=== PATIENT | female | born 1985 | race Caucasian/White ===

== ENCOUNTER 2016-10-24 11:03 | Inpatient (IN) | payer MEDICARE, MEDICAID ==
[2016-10-24] MEDS ORDERED: Sodium Chloride 0.9% 2,000 ML IV ONE (11:51)
[2016-10-24] MEDS ORDERED: HYDROmorphone 1 MG/ML Syringe IVPUSH ONE ×4 (11:51→16:29)
[2016-10-24] MEDS ORDERED: Ondansetron 4 MG/2 ML SDV IVPUSH ONE (11:52)
--- NOTE | 2016-10-24 11:57 | EDM.PDOC ---
ED HPI GENERAL MEDICAL PROBLEM - General Chief Complaint: Gastrointestinal Problem Stated Complaint: CHRON'S FLARE UP Time Seen by Provider: 10/24/16 11:30 Source of Information: Reports: Patient History Limitations: Reports: No Limitations - History of Present Illness INITIAL COMMENTS - FREE TEXT/NARRATIVE: Patient is a 31-year-old female who presents to the ED complaining of generalized abdominal pain with distention and mild nausea. Patient has a history of Crohn's disease and is currently on entyvio. Has ileostomy bag in place. Receives TPN through PICC line to her right upper arm. Just recently returned to [place] from [facility]. She is visiting her and daughter. She'll be here for the next few days. States she has not taken her Dilaudid 4 mg by mouth every 6 hours this morning and thus is questioning increasing abdominal discomfort secondary to that. In addition she feels somewhat dry and may need some IV fluids. There is also concern for possible air embolism. states patient was found to be excessively tired with low energy and would fall asleep randomly. Last night with hooking up her TPN she did not flush the system appropriately and this was stopped and prepped by her appropriately with administration of the TPN thereafter. After completion of the TPN infusion they were putting the machine away and the patient attempted to try to hook it up again. She does take Dilaudid 4 mg every 6 hours. She's been on this medication for quite some time. Patient has not developed any chest pain, headache, vision changes, shortness of breath, fever/ chills, dysuria, rash, or any additional complaints. In addition she has a history of anxiety and depression and takes alprazolam 0.5 mg 3 times a day. Patient sees a specialist at [facility] for her Crohn's treatment. Right Abdominal Pain Score (Numeric/FACES): 8 - Related Data Allergies Allergy/AdvReac Type Severity Reaction Status Date / Time No Known Allergies Allergy Verified 10/24/16 18:01 Home Meds: Home Meds Budesonide [Entocort EC] 6 mg PO BEDTIME 01/07/16 [History] Promethazine [Phenergan] 12.5 mg PO Q6H PRN #20 tablet 01/08/16 [Rx] Acetaminophen/HYDROcodone [[place] 325-5 MG] 1 - 2 tab PO Q4H PRN #20 tablet 01/10 [Rx] methylPREDNISolone [Medrol] 40 mg PO DAILY 01/15/16 [History] Past Medical History Cardiovascular History: Reports: Heart Failure, Other (See Below) Other Cardiovascular History: Heart failure when she was in [place] for the past year Gastrointestinal History: Reports: Other (See Below) Other Gastrointestinal History: sigmoid dilation 4 times; Chrons dx; fistulas CLIENT SUPPORT ASSOCIATE History: Reports: Other OB/BYN History: Psychiatric History: Reports: Anxiety, Depression - Past Surgical History GI Surgical History: Reports: Other (See Below) Other GI Surgeries/Procedures: ileostomy Female Surgical History: Reports: Section Social & Family History - Family History Family Medical History: Noncontributory - Tobacco Use Smoking Status *Q: Never Smoker Second Hand Smoke Exposure: No - Caffeine Use Caffeine Use: Reports: Coffee Other Caffeine Use: coffee rarely - Alcohol Use Days Per Week of Alcohol Use: 0 - Recreational Drug Use Recreational Drug Use: No - Living Situation & Occupation Living situation: Reports: ED ROS GENERAL - Review of Systems Review Of Systems: See Below Constitutional: Reports: Decreased Appetite (Normal unchanged). Denies: Fever, Chills, Weight Loss HEENT: Reports: No Symptoms Respiratory: Reports: No Symptoms Cardiovascular: Reports: No Symptoms GI/Abdominal: Reports: Abdominal Pain (Generalized crampy/sharp discomfort throughout), Decreased Appetite, Distension, Flatus, Nausea. Denies: Black Stool, Bloody Stool, Constipation, Diarrhea, Hematemesis, Hematochezia, Melena, Vomiting : Denies: Dysuria Musculoskeletal: Denies: Back Pain Neurological: Reports: Dizziness (Intermittent). Denies: Headache ED EXAM, GI/ABD - Physical Exam Exam: See Below Exam Limited By: No Limitations General Appearance: Alert, WD/WN, No Apparent Distress Ears: Hearing Grossly Normal Nose: Normal Inspection Throat/Mouth: Normal Inspection, Normal Voice, No Airway Compromise, Other ( Mildly dry oral mucosa) Neck: Normal Inspection, Supple Respiratory/Chest: No Respiratory Distress, Lungs Clear, Normal Breath Sounds, No Accessory Muscle Use, Chest Non-Tender Cardiovascular: Normal Peripheral Pulses, Regular Rate, Rhythm, No Murmur GI/Abdominal Exam: Soft, No Organomegaly, No Distention, Tender (Throughout her abdomen with palpation, mild in nature. Ileostomy in place with light colored secretions. No blood present. Stoma site reveals no irritation, increased redness, increased swelling, or pain with palpation. Patient has multiple fistulas that appeared to to be not infected.), Abnormal Bowel Sounds ( Hyperactive) (Female) Exam: Deferred Rectal (Female) Exam: Deferred Back Exam: Normal Inspection Extremities: Normal Inspection, Non-Tender, No Pedal Edema, Other (PICC line to the medial aspect of the right upper arm with Tegaderm in place. No signs of erythema, increased swelling, or pain present.) Neurological: Alert, Oriented, CN II-XII Intact, Normal Cognition, Normal Gait, No Motor/Sensory Deficits Psychiatric: Normal Affect, Normal Mood Skin Exam: Warm, Dry, Intact, Normal Color Course - Vital Signs Last Recorded V/S: Last Vital Signs Temp 98.7 F 10/24/16 11:11 Pulse 114 H 10/24/16 11:11 Resp 16 10/24/16 11:11 BP 109/77 10/24/16 11:11 Pulse Ox 94 L 10/24/16 11:11 - Orders/Labs/Meds Orders: Active Orders 24 hr Category Date Time Status Peripheral IV Care [RC] . DIRECTED Care 10/24/16 11:51 Active Sodium Chloride 0.9% [Saline Flush] Med 10/24/16 11:51 Active 10 ml FLUSH ASDIRECTED PRN NG [Nasogastric Orogastric Tube Insertion] [OM.PC] Oth 10/24/16 17:03 Ordered Routine Peripheral IV Insertion Adult [OM.PC] Stat Ot 10/24/16 11:51 Ordered Medication Orders Acetaminophen (Tylenol) 650 mg PO Q4H PRN PRN Reason: Pain (Mild 1-3)/fever Hydrocodone Bitart/Acetaminophen ([place] 325-5 Mg) 1 tab PO Q4H PRN PRN Reason: Pain (moderate 4-6) Albuterol/Ipratropium (Duoneb 3.0-0.5 Mg/3 Ml) 3 ml NEB Q4H PRN PRN Reason: Shortness Of Breath/wheezing Cyanocobalamin (Vitamin B12) 1,000 mcg IM DAILY LALITHA Stop: 10/28/16 09:00 Folic Acid (Folic Acid) 2 mg SUBCUT DAILY ONE Stop: 10/25/16 18:05 Folic Acid (Folic Acid) 1 mg PO DAILY [facility] Hydralazine HCl (Apresoline) 20 mg IVPUSH Q4H PRN PRN Reason: Hypertension Hydrocortisone Sodium Succinate (Solu-Cortef) 100 mg IVPUSH Q6H LALITHA Hydromorphone HCl (Dilaudid) 1 mg IVPUSH Q4H PRN PRN Reason: Pain (severe 7-10) Dextrose/Sodium Chloride (Dextrose 5%-1/2 Ns) 1,000 mls @ 125 mls/hr IV ASDIRECTED [facility] Promethazine HCl 12.5 mg/ (Sodium Chloride) 50.5 mls @ 100 mls/hr IV Q6H PRN PRN Reason: Nausea/Vomiting Lorazepam (Ativan) 2 mg IVPUSH Q4H PRN PRN Reason: Seizures Lorazepam (Ativan) 1 mg IV Q6H PRN PRN Reason: Anxiety Magnesium Sulfate (Pharmacy To Dose - Magnesium Replacement) 1 dose .XX ASDIRECTED [facility] Metoclopramide HCl (Reglan) 5 mg IVPUSH Q6H [facility] Metoprolol Tartrate (Lopressor) 5 mg IVPUSH Q4H PRN PRN Reason: Tachycardia Metronidazole (Flagyl) 500 mg PO Q8H [facility] Multivitamins (Thera) 1 each PO DAILY [facility] Non-Formulary Medication (Budesonide [Entocort Ec]) 6 mg PO BEDTIME LALITHA Ondansetron HCl (Zofran) 4 mg IV Q6H PRN PRN Reason: Nausea/Vomiting Pantoprazole Sodium (Protonix Iv) 40 mg IV Q12HR [facility] Potassium Chloride (Pharmacy To Dose - Potassium Replacement) 1 dose .XX ASDIRECTED [facility] Sodium Chloride (Saline Flush) 10 ml FLUSH ASDIRECTED PRN PRN Reason: Keep Vein Open Last Admin: 10/24/16 13:49 Dose: 10 ml Admin: 10/24/16 12:11 Dose: 10 ml Temazepam (Restoril) 15 mg PO BEDTIME PRN PRN Reason: Sleep Labs: Laboratory Tests 10/24/16 10/24/16 10/24/16 Range/Units 12:09 12:09 12:09 WBC 7.80 (3.98-10.04) K/mm3 RBC 4.70 (3.98-5.22) M/mm3 Hgb 9.6 L (11.2-15.7) gm/L Hct 31.4 L (34.1-44.9) % MCV 66.8 L (79.4-94.8) fl MCH 20.4 L (25.6-32.2) pg MCHC 30.6 L (32.2-35.5) g/dl RDW Std Deviation 45.7 (36.4-46.3) fL Plt Count 389 H (182-369) K/mm3 MPV 10.0 (9.4-12.3) fl Neut % (Auto) 66.0 (34.0-71.1) % Lymph % (Auto) 21.5 (19.3-51.7) % Bond % (Auto) 10.6 (4.7-12.5) % Eos % (Auto) 1.7 (0.7-5.8) Baso % (Auto) 0.1 (0.1-1.2) % Neut # (Auto) 5.14 (1.56-6.13) K/mm3 Lymph # (Auto) 1.68 (1.18-3.74) K/mm3 Bond # (Auto) 0.83 H (0.24-0.36) K/mm3 Eos # (Auto) 0.13 (0.04-0.36) K/mm3 Baso # (Auto) 0.01 (0.01-0.08) K/mm3 Manual Slide Review Abnormal smear Sodium 132 L (136-145) mEq/L Potassium 4.4 (3.5-5.1) mEq/L Chloride 96 L (98-107) mEq/L Carbon Dioxide 31 (21-32) mEq/L Anion Gap 9.4 (5-15) BUN 25 H (7-18) mg/dL Creatinine 0.7 (0.55-1.02) mg/dL Est Cr Clr Drug Dosing 99.14 mL/min Estimated GFR (MDRD) > 60 (>60) mL/min BUN/Creatinine Ratio 35.7 H (14-18) Glucose 114 H (74-106) mg/dL Calcium 9.6 (8.5-10.1) mg/dL Total Bilirubin 0.3 (0.2-1.0) mg/dL AST 54 H (15-37) U/L ALT 60 H (14-59) U/L Alkaline Phosphatase 187 H (46-116) U/L C-Reactive Protein 7.1 H* (<1.0) mg/dL Total Protein 8.3 H (6.4-8.2) g/dl Albumin 3.1 L (3.4-5.0) g/dl Globulin 5.2 gm/dL Albumin/Globulin Ratio 0.6 L (1-2) Lipase 134 (73-393) U/L HCG, Qual Negative (NEGATIVE) Urine Color (Yellow) Urine Appearance (Clear) Urine pH (5.0-8.0) Ur Specific [place] (1.005-1.030) Urine Protein (Negative) Urine Glucose (UA) (Negative) Urine Ketones (Negative) Urine Occult Blood (Negative) Urine Nitrite (Negative) Urine Bilirubin (Negative) Urine Urobilinogen (0.2-1.0) Ur Leukocyte Esterase (Negative) Urine RBC (0-5) /hpf Urine WBC (0-5) /hpf Ur Epithelial Cells (0-5) /hpf Urine Bacteria (FEW) /hpf Urine Mucus (FEW) /hpf 10/24/16 Range/Units 15:45 WBC (3.98-10.04) K/mm3 RBC (3.98-5.22) M/mm3 Hgb (11.2-15.7) gm/L Hct (34.1-44.9) % MCV (79.4-94.8) fl MCH (25.6-32.2) pg MCHC (32.2-35.5) g/dl RDW Std Deviation (36.4-46.3) fL Plt Count (182-369) K/mm3 MPV (9.4-12.3) fl Neut % (Auto) (34.0-71.1) % Lymph % (Auto) (19.3-51.7) % Bond % (Auto) (4.7-12.5) % Eos % (Auto) (0.7-5.8) Baso % (Auto) (0.1-1.2) % Neut # (Auto) (1.56-6.13) K/mm3 Lymph # (Auto) (1.18-3.74) K/mm3 Bond # (Auto) (0.24-0.36) K/mm3 Eos # (Auto) (0.04-0.36) K/mm3 Baso # (Auto) (0.01-0.08) K/mm3 Manual Slide Review Sodium (136-145) mEq/L Potassium (3.5-5.1) mEq/L Chloride (98-107) mEq/L Carbon Dioxide (21-32) mEq/L Anion Gap (5-15) BUN (7-18) mg/dL Creatinine (0.55-1.02) mg/dL Est Cr Clr Drug Dosing mL/min Estimated GFR (MDRD) (>60) mL/min BUN/Creatinine Ratio (14-18) Glucose (74-106) mg/dL Calcium (8.5-10.1) mg/dL Total Bilirubin (0.2-1.0) mg/dL AST (15-37) U/L ALT (14-59) U/L Alkaline Phosphatase (46-116) U/L C-Reactive Protein (<1.0) mg/dL Total Protein (6.4-8.2) g/dl Albumin (3.4-5.0) g/dl Globulin gm/dL Albumin/Globulin Ratio (1-2) Lipase (73-393) U/L HCG, Qual (NEGATIVE) Urine Color Yellow (Yellow) Urine Appearance Clear (Clear) Urine pH 6.5 (5.0-8.0) Ur Specific [place] 1.010 (1.005-1.030) Urine Protein Negative (Negative) Urine Glucose (UA) Negative (Negative) Urine Ketones Negative (Negative) Urine Occult Blood Negative (Negative) Urine Nitrite Negative (Negative) Urine Bilirubin Negative (Negative) Urine Urobilinogen 0.2 (0.2-1.0) Ur Leukocyte Esterase Negative (Negative) Urine RBC 0-5 (0-5) /hpf Urine WBC 0-5 (0-5) /hpf Ur Epithelial Cells 0-5 (0-5) /hpf Urine Bacteria Few (FEW) /hpf Urine Mucus Not seen (FEW) /hpf Meds: Medications Generic Name Dose Route Start Last Admin Trade Name Freq PRN Reason Stop Dose Admin Acetaminophen 650 mg 10/24/16 17:52 Tylenol PO Q4H PRN Pain (Mild 1-3)/fever Hydrocodone Bitart/Acetaminophen 1 tab 10/24/16 17:52 [place] 325-5 Mg PO Q4H PRN Pain (moderate 4-6) Albuterol/Ipratropium 3 ml 10/24/16 17:52 Duoneb 3.0-0.5 Mg/3 Ml NEB Q4H PRN Shortness Of Breath/wheezing Cyanocobalamin 1,000 mcg 10/25/16 09:00 Vitamin B12 IM 10/28/16 09:00 DAILY LALITHA Folic Acid 2 mg 10/25/16 18:04 Folic Acid SUBCUT 10/25/16 18:05 DAILY ONE Folic Acid 1 mg 10/25/16 09:00 Folic Acid PO DAILY [facility] Hydralazine HCl 20 mg 10/24/16 17:51 Apresoline IVPUSH Q4H PRN Hypertension Hydrocortisone Sodium Succinate 100 mg 10/24/16 18:30 Solu-Cortef IVPUSH Q6H LALITHA Hydromorphone HCl 1 mg 10/24/16 17:52 Dilaudid IVPUSH Q4H PRN Pain (severe 7-10) Dextrose/Sodium Chloride 1,000 mls @ 125 mls/hr 10/24/16 18:00 Dextrose 5%-1/2 Ns IV ASDIRECTED [facility] Promethazine HCl 12.5 mg/ 50.5 mls @ 100 mls/hr 10/24/16 17:52 Sodium Chloride IV Q6H PRN Nausea/Vomiting Lorazepam 2 mg 10/24/16 17:51 Ativan IVPUSH Q4H PRN Seizures Lorazepam 1 mg 10/24/16 17:52 Ativan IV Q6H PRN Anxiety Magnesium Sulfate 1 dose 10/24/16 18:00 Pharmacy To Dose - Magnesium Replacement .XX ASDIRECTED [facility] Metoclopramide HCl 5 mg 10/24/16 18:00 Reglan IVPUSH Q6H LALITHA Metoprolol Tartrate 5 mg 10/24/16 17:51 Lopressor IVPUSH Q4H PRN Tachycardia Metronidazole 500 mg 10/24/16 18:00 Flagyl PO Q8H [facility] Multivitamins 1 each 10/25/16 09:00 Thera PO DAILY [facility] Non-Formulary Medication 6 mg 10/24/16 21:00 Budesonide [Entocort Ec] PO BEDTIME [facility] Ondansetron HCl 4 mg 10/24/16 17:52 Zofran IV Q6H PRN Nausea/Vomiting Pantoprazole Sodium 40 mg 10/24/16 21:00 Protonix Iv IV Q12HR LALITHA Potassium Chloride 1 dose 10/24/16 18:00 Pharmacy To Dose - Potassium Replacement .XX ASDIRECTED LALITHA Sodium Chloride 10 ml 10/24/16 11:51 10/24/16 13:49 Saline Flush FLUSH 10 ml ASDIRECTED PRN Administration Keep Vein Open Temazepam 15 mg 10/24/16 17:52 Restoril PO BEDTIME PRN Sleep Discontinued Medications Generic Name Dose Route Start Last Admin Trade Name Freq PRN Reason Stop Dose Admin Cyanocobalamin 1,000 mcg 10/24/16 18:03 Vitamin B12 IM 10/24/16 18:04 ONETIME ONE Diatrizoate Meglum/Diatrizoate Sod 90 ml 10/24/16 12:57 10/24/16 13:48 Gastrografin 37% PO 10/24/16 12:58 90 ml ONETIME ONE Administration Hydromorphone HCl 1 mg 10/24/16 11:51 10/24/16 12:08 Dilaudid IVPUSH 10/24/16 11:52 1 mg ONETIME ONE Administration Hydromorphone HCl 1 mg 10/24/16 12:25 10/24/16 12:32 Dilaudid IVPUSH 10/24/16 12:26 1 mg ONETIME ONE Administration Hydromorphone HCl 1 mg 10/24/16 13:32 10/24/16 13:35 Dilaudid IVPUSH 10/24/16 13:33 1 mg ONETIME ONE Administration Hydromorphone HCl 1 mg 10/24/16 16:29 10/24/16 16:35 Dilaudid IVPUSH 10/24/16 16:30 1 mg ONETIME ONE Administration Sodium Chloride 2,000 mls @ 999 mls/hr 10/24/16 11:51 10/24/16 12:10 Normal Saline IV 10/24/16 13:51 999 mls/hr ONETIME ONE Administration Sodium Chloride Confirm 10/24/16 13:43 10/24/16 13:43 Normal Saline Administered 10/24/16 13:44 1,000 ml Dose Administration 1,000 mls @ as directed .ROUTE .STK-MED ONE Iopamidol 100 ml 10/24/16 12:57 10/24/16 13:49 Isovue-300 (61%) IVPUSH 10/24/16 12:58 90 ml ONETIME ONE Administration Metoclopramide HCl 5 mg 10/24/16 16:28 10/24/16 16:33 Reglan IVPUSH 10/24/16 16:29 5 mg ONETIME ONE Administration Ondansetron HCl 4 mg 10/24/16 11:52 10/24/16 12:06 Zofran IVPUSH 10/24/16 11:53 4 mg ONETIME ONE Administration Sodium Chloride 10 ml 10/24/16 12:57 10/24/16 14:34 Saline Flush FLUSH 10/24/16 12:58 10 ml ONETIME ONE Administration - Re-Assessments/Exams Free Text/Narrative Re-Assessment/Exam: Peripheral IV was established with normal saline 999 mL per hour, 2 L total, Zofran 4 mg IVP, and Dilaudid 1 mg IVP. Initial labs and studies include CBC, chem 14, hCG, lipase, UA, CRP, and two-view of the abdomen. 10/24/16 12:26 Reassessment, per nursing staff pain has not improved with the above therapy. Ordered an additional milligram of Dilaudid IVP. 10/24/16 12:40 X-ray of the abdomen reviewed with Dr. Zimmerman revealing multiple air-fluid levels concerning for obstruction. Ordered CT of the abdomen and pelvis with oral and IV contrast. 10/24/16 13:33 Patient complaining of abdominal pain. Ordered dilaudid 1mg IVP. 10/24/16 14:24 Labs reviewed: Blood cell count 7.0, hemoglobin 9.6, platelet count 389, sodium 132, potassium 4.4, chloride 96, AG 9.4, creatinine 0.7, glucose 114, AST mildly elevated 54, ALT mildly elevated 60, alk phosphatase 187 , CRP 7.1, total protein 8.3, albumin 3.1, lipase 134, and hCG was negative. Results of CT abdomen and pelvis are pending. 10/24/16 15:27 CT abdomen and pelvis impression: Diffuse small bowel wall dilatation. Findings compatible with a mid to distal small bowel obstruction, etiology not seen on this study. Subpleural nodular density within the right lung base. Noncontrast chest CT recommended in 6 months to hopefully show resolution of his findings. Mildly prominent mesenteric lymph nodes which are stable from prior CT study. Several low-density areas within the gallbladder which are felt better with cholesterol gallstones. 10/24/16 15:[address] Moncada air control electronics operator hospitalists. He will see the patient in the ED. 10/24/16 16:00 Dr. Moncada has evaluated the patient in the E.D. offered to admit the patient but advised the patient that he may have difficulty in transferring the patient in a timely manner if she does not improve. Patient's can speak with her about course. 10/24/16 1652 Patient has elected to be admitted to the hospital here in [place]. NG tube ordered. [address] Moncada he has accepted the patient. Patient will be admitted to [facility]. Spoke with the charge nurse to perform MCG on the patient. Admission will be delayed due to 3 additional patient's being admitted exceeding the 6 hour time frame in the ED. 10/24/16 18:54 Admission order placed. Patient moved to the floor. Departure - Departure Time of Disposition: 17:02 Disposition: Admitted As Inpatient 65 Condition: Fair Clinical Impression: Small bowel obstruction Crohns disease of small intestine Qualifiers: Digestive disease complication type: other complication Qualified Code(s): K50.018 - Crohn's disease of small intestine with other complication - Discharge Information - My Orders Last 24 Hours: My Active Orders 10/24/16 11:51 Peripheral IV Care [RC] . DIRECTED Sodium Chloride 0.9% [Saline Flush] 10 ml FLUSH ASDIRECTED PRN Peripheral IV Insertion Adult [OM.PC] Stat 10/24/16 17:03 NG [Nasogastric Orogastric Tube Insertion] [OM.PC] Routine - Assessment/Plan Last 24 Hours: My Active Orders 10/24/16 11:51 Peripheral IV Care [RC] . DIRECTED Sodium Chloride 0.9% [Saline Flush] 10 ml FLUSH ASDIRECTED PRN Peripheral IV Insertion Adult [OM.PC] Stat 10/24/16 17:03 NG [Nasogastric Orogastric Tube Insertion] [OM.PC] Routine
[2016-10-24] MEDS: Sodium Chloride 0.9% 10 ML Syringe FLUSH PRN ×2 (12:11→13:49)
[2016-10-24] MEDS ORDERED: Iopamidol 612 MG/ML 100 ML Bottle IVPUSH ONE (12:57)
[2016-10-24] MEDS ORDERED: Diatrizoate Meglumine/Diatrizoate Sodium 37% 120 ML Bottle PO ONE (12:57)
[2016-10-24] MEDS ORDERED: Sodium Chloride 0.9% 10 ML Syringe FLUSH ONE (12:57)
[2016-10-24] MEDS ORDERED: Sodium Chloride 0.9% 1,000 ML ONE (13:43)
--- NOTE | 2016-10-24 14:39 | CR ---
Abdomen: Supine and upright views of the abdomen were obtained. Multiple air-fluid levels are seen on the upright view. Findings are felt compatible with mid small bowel obstruction. No free air is seen. Bony structures are unremarkable. Calcifications are seen within the pelvis which are compatible with phleboliths. Impression: 1. Findings suspicious for mid small bowel obstruction. Diagnostic code #5
--- NOTE | 2016-10-24 14:57 | CT ---
CT abdomen and pelvis Technique: Multiple axial sections were obtained from above the dome of the diaphragm inferiorly through the pubic symphysis. Intravenous and oral contrast was utilized. Comparison: Previous CT abdomen and pelvis exam of 11/16/15. Findings: Diffuse small bowel dilatation is seen containing fluid. Ostomy site appears to be present within the right lower abdomen. Scarring is seen within the anterior abdominal wall compatible with scarring from previous surgery. Visualized lung bases show slight atelectasis. Subpleural nodular density is noted within the right lung base measuring 1.4 cm. This is not seen on previous exam. Follow-up will be recommended to make sure this resolves and does not enlarge. Liver shows no focal abnormality. Several low density areas are seen within the gallbladder presumably due to cholesterol gallstones. Adrenal glands show no nodule. Kidneys show contrast enhancement without hydronephrosis or mass. Pancreas is within normal limits. Aorta shows no aneurysmal dilatation. No retroperitoneal adenopathy is seen. Slightly prominent mesenteric lymph nodes are seen which appear to be fairly stable from prior exam. Small amount of free fluid seen within the cul-de-sac which is likely incidental. No discrete pelvic abnormality is seen. Bone window settings were reviewed which appear within normal limits for the patient's age. Impression: 1. Diffuse small bowel wall dilatation. Findings compatible with a mid to distal small bowel obstruction, etiology not seen on this study. 2. Subpleural nodular density within the right lung base. Noncontrast chest CT recommended in 6 months to hopefully show resolution of this finding. 3. Mildly prominent mesenteric lymph nodes which are stable from prior CT study. 4. Several low density areas within the gallbladder which are felt compatible with cholesterol gallstones. Diagnostic code #5
[2016-10-24] MEDS ORDERED: Metoclopramide 10 MG/2 ML SDV IVPUSH ONE (16:28)
--- NOTE | 2016-10-24 17:42 | PCM.HP ---
H&P History of Present Illness - General Date of Service: 10/24/16 Admit Problem/Dx: Acute on Chronic Crohn's Disease with Small Bowel Obstruction Source of Information: Patient, Family, Provider, RN Notes Reviewed History Limitations: Reports: No Limitations - History of Present Illness Initial Comments - Free Text/Narative: This is 31 yo white female with past medical hx/o heart failure, history of sigmoid dilitation 4, Crohn's fistula, anxiety, depression and status post ileostomy who presents to the emergency department with complains of generalized abdominal pain associated with distention and nausea. Patient carries a severe form of Crohn's disease and is currently on entyvio for treatment. Patient has ileostomy bag and PICC line to her right arm for TPN. Patient just got back from [place] and is here to visit her and daughter. According to her, she has not taken her Dilaudid and felt this may be due to her increasing abdominal discomfort. Per ED notes, her states that patient was found excessively tired with low energy and would follow asleep randomly. Patient denies any systemic infection. No sick contact. Patient sees a GI specialist in [facility] for her Severe Crohn's disease. She follows a local specialist here in [facility] for routine maintenance. Patient is on the following medications for her Crohn's regimen: Entocort 6 mg by mouth at bedtime, Phenergan 12.5 mg by mouth every 6 PRN, Botkins 325/5 mg 1-2 tab by mouth every 4H PRN, and methylprednisolone 40 mg by mouth daily. Her initial workup in emergency department shows a CBC remarkable for hemoglobin of 9.6, hematocrit of 31.4, MCV of 66.8, MCH of 20.4, MCHC of 30.6, and platelet of 389. Her ESR is 42 and CRP is 7.1. Her chemistry is significant for Na of 132, Cl of 96, BUN of 25, Glucose of 114, AST of 54, ALT 60, Alk Phos of 187, Total Protein of 8.3 and Albumin of 3.1. Her test is negative. Her UA is negative. Abdominal x-ray report reads suspicious for mid small bowel obstruction. Abdominal CT scan report reads diffuse small bowel wall dilatation, compatible with mid to distal small bowel obstruction. Sub- pleural nodule density within the right lung base. Mildly prominent mesenteric lymph nodes stable from prior study. Several low density areas within the gallbladder which are felt compatible with cholesterol gallstone. Patient is being admitted for acute exacerbation of Crohn's disease and small bowel obstruction. Right Abdominal Pain Score (Numeric/FACES): 8 - Related Data Allergies/Adverse Reactions: Allergies Allergy/AdvReac Type Severity Reaction Status Date / Time No Known Allergies Allergy Verified 10/24/16 19:10 Home Medications: Home Meds Promethazine [Phenergan] 12.5 mg PO Q6H PRN #20 tablet 01/08/16 [Rx] Folic Acid 1 mg IV DAILY 10/24/16 [History] HYDROmorphone [Dilaudid] 4 mg PO Q4H 10/24/16 [History] LORazepam 1 mg PO BID PRN 10/24/16 [History] Multivitamin 2 vial IV DAILY 10/24/16 [History] Past Medical History Cardiovascular History: Reports: Heart Failure, Other (See Below) Other Cardiovascular History: Heart failure when she was in [place] for the past year Gastrointestinal History: Reports: Other (See Below) Other Gastrointestinal History: sigmoid dilation 4 times; Chrons dx; fistulas CRAS History: Reports: Other OB/BYN History: Psychiatric History: Reports: Anxiety, Depression - Past Surgical History GI Surgical History: Reports: Other (See Below) Other GI Surgeries/Procedures: ileostomy Female Surgical History: Reports: Section Social & Family History - Family History Family Medical History: Noncontributory - Tobacco Use Smoking Status *Q: Never Smoker Second Hand Smoke Exposure: No - Caffeine Use Caffeine Use: Reports: Coffee Other Caffeine Use: coffee rarely - Alcohol Use Days Per Week of Alcohol Use: 0 - Recreational Drug Use Recreational Drug Use: No - Living Situation & Occupation Living situation: Reports: H&P Review of Systems - Review of Systems: Review Of Systems: See Below General: Reports: Decreased Appetite. Denies: Fever, Chills, Malaise, Weakness , Fatigue HEENT: Reports: No Symptoms Pulmonary: Denies: Shortness of Breath Cardiovascular: Denies: Chest Pain Gastrointestinal: Reports: Abdominal Pain (cramps), Decreased Appetite, Distension, Flatus, Nausea. Denies: Difficulty Swallowing, Vomiting Genitourinary: Reports: No Symptoms Musculoskeletal: Reports: Back Pain Skin: Denies: Cyanosis, Pallor, Diaphoresis, Rash, Change in Color Psychiatric: Denies: Depression, Cravings, Hallucinations, Suicidal Ideation Neurological: Denies: Confusion, Dizziness, Difficulty Walking, Weakness, Gait Disturbance Hematologic/Lymphatic: Reports: No Symptoms Immunologic: Reports: No Symptoms Exam - Exam Exam: See Below - Vital Signs Vital Signs: Last Vital Signs Temp 37.1 C 10/24/16 11:11 Pulse 114 H 10/24/16 11:11 Resp 16 10/24/16 11:11 BP 109/77 10/24/16 11:11 Pulse Ox 94 L 10/24/16 11:11 Weight: 54.431 kg - Exam Quality Assessment: Other (NHT) General: Alert, Oriented, Cooperative, Mild Distress, Other (PICC line) HEENT: Conjunctiva Clear, EACs Clear, EOMI, Hearing Intact, Mucosa Moist & [place] , Nares Patent, Normal Nasal Septum, Posterior Pharynx Clear, Pupils Equal, Pupils Reactive, TMs Clear Neck: Supple, Trachea Midline, +2 Carotid Pulse wo Bruit, Full Range of Motion Lungs: Clear to Auscultation, Normal Respiratory Effort Cardiovascular: Regular Rate, Regular Rhythm GI/Abdominal Exam: Soft, No Organomegaly, No Abnormal Bruit, No Mass, Distended , Tender (mid-abdomen), Abnormal Bowel Sounds, Other (Ileostomy bag). No: Guarding, Rigid, Rebound (Female) Exam: Deferred Rectal (Female) Exam: Normal Exam, Deferred Back Exam: Normal Inspection, Decreased Range of Motion Extremities: Normal Inspection, Normal Range of Motion, Non-Tender, No Pedal Edema, Normal Capillary Refill Peripheral Pulses: 3+: Posterior Tibial (L), Posterior Tibial (R), Dorsalis Pedis (L), Dorsalis Pedis (R) Skin: Warm, Dry, Intact Neuro Extensive - Mental Status: Oriented x3, Normal Cognition, Memory Intact Neuro Extensive - Motor, Sensory, Reflexes: CN II-XII Intact, Normal Gait Psychiatric: Alert, Normal Affect, Normal Mood - Patient Data Result Diagrams: 10/24/16 12:09 10/24/16 12:09 *Q Meaningful Use (ADM) - VTE *Q VTE Criteria *Q: - Stroke *Q Stroke Criteria *Q: - AMI *Q AMI Criteria *Q: Problem List Initiated/Reviewed/Updated: Yes Orders Last 24hrs: Medication Orders Sodium Chloride (Saline Flush) 10 ml FLUSH ASDIRECTED PRN PRN Reason: Keep Vein Open Last Admin: 10/24/16 13:49 Dose: 10 ml Admin: 10/24/16 12:11 Dose: 10 ml Assessment/Plan Comment:: Assessment/Plan: Acute: Crohn's Disease - Acute on Chronic - She follows GI in specialist - IV Hydrocortisone 100 mg IV Q6H and IV Flagyl 500 mg Q8 - Bowel Rest, IV Hydration - PRN Pain Medications Partial Small Bowel Obstruction - 2/2 Above or Crohn's Colitis and likely Opioid Use/Abuse - She is passing gas - IV Hydration and NGT with low intermittent suction - Scheduled prokinetic agent - Ambulate QID Anemia - Acute on Chronic - 2/2 Chronic Disease from Crohn's Disease - Hgb baseline is 10-12 - Hgb is 9.6 on admission - Vit B12, Folic Acid and MVI Abdominal/Pelvis CT scan Findings - Sub-pleural nodular density within the right lung base-recommend non- contrast chest CT in 6 months - Mildly prominent mesenteric lymph nodes which are stable from prior CT study - Several low density areas within the gallbladder compatible with cholesterol gallstones. 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
[2016-10-24] MEDS ORDERED: LORazepam 2 MG/ML MDV IVPUSH PRN (17:51)
[2016-10-24] MEDS ORDERED: hydrALAZINE 20 MG/ML SDV IVPUSH PRN (17:51)
[2016-10-24] MEDS ORDERED: Metoprolol Tartrate 5 MG/5 ML SDV IVPUSH PRN (17:51)
[2016-10-24] MEDS ORDERED: Promethazine 12.5 MG in Sodium Chloride 0.9% 50 ML IV PRN (17:52)
[2016-10-24] MEDS ORDERED: Acetaminophen/HYDROcodone 325-5 MG Tab PO PRN (17:52)
[2016-10-24] MEDS ORDERED: Acetaminophen 325 MG Tab PO PRN (17:52)
[2016-10-24] MEDS ORDERED: HYDROmorphone 1 MG/ML Syringe IVPUSH PRN (17:52)
[2016-10-24] MEDS ORDERED: Albuterol/Ipratropium 3.0-0.5 MG/3 ML Neb Soln NEB PRN (17:52)
[2016-10-24] MEDS ORDERED: Ondansetron 4 MG/2 ML SDV IV PRN (17:52)
[2016-10-24] MEDS ORDERED: metroNIDAZOLE 500 MG Tab PO SCH (18:00)
[2016-10-24] MEDS ORDERED: Cyanocobalamin (Vitamin B12) 1,000 MCG/ML SDV IM ONE ×2 (18:03→22:30)
[2016-10-24] MEDS ORDERED: LORazepam 1 MG Tab PO PRN (21:57)
[2016-10-24] MEDS: Pantoprazole 40 MG Vial IV SCH (21:57)
[2016-10-24] MEDS: Metoclopramide 10 MG/2 ML SDV IVPUSH SCH (21:58)
[2016-10-24] MEDS: Hydrocortisone Sodium Succinate 100 MG/2 ML SDV IVPUSH SCH (21:58)
[2016-10-24] MEDS: HYDROmorphone 1 MG/ML Syringe IVPUSH PRN (22:33)
[2016-10-24] MEDS: metroNIDAZOLE/Normal Saline 500 MG in Premix Bag 1 BAG IV SCH (22:33)
[2016-10-24] MEDS: Temazepam 15 MG Cap PO PRN (22:34)
[2016-10-25] MEDS: HYDROmorphone 1 MG/ML Syringe IVPUSH PRN ×8 (00:43→23:31)
[2016-10-25] MEDS: Hydrocortisone Sodium Succinate 100 MG/2 ML SDV IVPUSH SCH ×5 (00:44→23:34)
[2016-10-25] MEDS: Metoclopramide 10 MG/2 ML SDV IVPUSH SCH ×5 (00:44→23:27)
[2016-10-25] MEDS: Dextrose 5%-0.45% NaCl 1,000 ML IV SCH ×3 (00:52→23:45)
[2016-10-25] MEDS: LORazepam 2 MG/ML MDV IV PRN ×3 (04:09→23:24)
[2016-10-25] MEDS: metroNIDAZOLE/Normal Saline 500 MG in Premix Bag 1 BAG IV SCH ×3 (06:17→21:06)
[2016-10-25] MEDS: Budesonide [Entocort Ec] 6 MG PO SCH ×2 (08:24→21:07)
[2016-10-25] MEDS ORDERED: MULTIVITAMIN IV SCH (09:00)
[2016-10-25] MEDS: Multivitamins,Therapeutic Tab PO SCH (10:28)
[2016-10-25] MEDS: Cyanocobalamin (Vitamin B12) 1,000 MCG/ML SDV IM SCH (10:28)
[2016-10-25] MEDS: Pantoprazole 40 MG Vial IV SCH ×2 (10:28→20:46)
[2016-10-25] MEDS: Folic Acid 1 MG Tab PO SCH (10:28)
--- NOTE | 2016-10-25 11:32 | PCM.PN ---
- General Info Date of Service: 10/25/16 Admission Dx/Problem (Free Text): Acute on Chronic Crohn's Disease with Small Bowel Obstruction Subjective Update: Follow Up Functional Status: Reports: Pain Controlled, Tolerating Diet, Ambulating, Urinating - Review of Systems General: Denies: Fever, Weakness, Fatigue, Malaise, Chills HEENT: Reports: No Symptoms Pulmonary: Denies: Shortness of Breath Cardiovascular: Denies: Chest Pain Gastrointestinal: Reports: Abdominal Pain (Better), Flatus. Denies: Nausea, Vomiting Genitourinary: Reports: No Symptoms Musculoskeletal: Reports: No Symptoms Skin: Denies: Cyanosis, Mottled, Pallor, Diaphoresis, Pruritis, Rash Neurological: Denies: Confusion, Dizziness, Difficulty Walking, Weakness, Gait Disturbance Psychiatric: Denies: Depression, Anxiety, Agitation, Hallucinations Systems Review Comment:: No significant overnight or acute issues. She feel much better this AM. Her Hgb slightly dropped to 8.6 from 9.6. Her Na and Cl are much better this AM. She removed NGT on her own. Repeat KUB this am shows dilated gas-filled bowel within the left abdomen. She has no new complaints. - Patient Data Vitals - Most Recent: Last Vital Signs Temp 36.7 C 10/25/16 08:09 Pulse 102 H 10/25/16 08:09 Resp 14 10/25/16 08:09 BP 107/60 10/25/16 08:09 Pulse Ox 94 L 10/25/16 08:09 Weight - Most Recent: 55.429 kg I&O - Last 24 Hours: Intake & Output 10/24/16 10/25/16 10/25/16 22:59 06:59 14:59 Intake Total 577 Output Total 500 Balance 77 Lab Results Last 24 Hours: Laboratory Results - last 24 hr 10/25/16 10/25/16 10/25/16 Range/Units 06:15 06:15 06:15 WBC 3.15 L (3.98-10.04) K/mm3 RBC 4.25 (3.98-5.22) M/mm3 Hgb 8.6 L (11.2-15.7) gm/L Hct 28.9 L (34.1-44.9) % MCV 68.0 L (79.4-94.8) fl MCH 20.2 L (25.6-32.2) pg MCHC 29.8 L (32.2-35.5) g/dl RDW Std Deviation 46.9 H (36.4-46.3) fL Plt Count 329 (182-369) K/mm3 MPV 9.5 (9.4-12.3) fl Neut % (Auto) 75.6 H (34.0-71.1) % Lymph % (Auto) 20.3 (19.3-51.7) % [place] % (Auto) 3.5 L (4.7-12.5) % Eos % (Auto) 0 L (0.7-5.8) Baso % (Auto) 0.3 (0.1-1.2) % Neut # (Auto) 2.38 (1.56-6.13) K/mm3 Lymph # (Auto) 0.64 L (1.18-3.74) K/mm3 [place] # (Auto) 0.11 L (0.24-0.36) K/mm3 Eos # (Auto) 0.00 L (0.04-0.36) K/mm3 Baso # (Auto) 0.01 (0.01-0.08) K/mm3 Manual Slide Review Abnormal smear ESR 46 H (0-20) mm/hr Sodium 140 (136-145) mEq/L Potassium 4.0 (3.5-5.1) mEq/L Chloride 107 (98-107) mEq/L Carbon Dioxide 26 (21-32) mEq/L Anion Gap 11.0 (5-15) BUN 19 H (7-18) mg/dL Creatinine 0.6 (0.55-1.02) mg/dL Est Cr Clr Drug Dosing 117.79 mL/min Estimated GFR (MDRD) > 60 (>60) mL/min BUN/Creatinine Ratio 31.7 H (14-18) Glucose 241 H (74-106) mg/dL Calcium 8.8 (8.5-10.1) mg/dL Magnesium 2.0 (1.8-2.4) mg/dl C-Reactive Protein 6.0 H* (<1.0) mg/dL Med Orders - Current: Current Medications Acetaminophen (Tylenol) 650 mg PO Q4H PRN PRN Reason: Pain (Mild 1-3)/fever Hydrocodone Bitart/Acetaminophen (Denair 325-5 Mg) 1 tab PO Q4H PRN PRN Reason: Pain (moderate 4-6) Last Admin: 10/24/16 21:57 Dose: 1 tab Albuterol/Ipratropium (Duoneb 3.0-0.5 Mg/3 Ml) 3 ml NEB Q4H PRN PRN Reason: Shortness Of Breath/wheezing Cyanocobalamin (Vitamin B12) 1,000 mcg IM DAILY PENDING SALE TO [facility] Stop: 10/28/16 09:00 Last Admin: 10/25/16 10:28 Dose: 1,000 mcg Folic Acid (Folic Acid) 2 mg SUBCUT DAILY ONE Stop: 10/25/16 18:05 Folic Acid (Folic Acid) 1 mg PO DAILY PENDING SALE TO [facility] Last Admin: 10/25/16 10:28 Dose: 1 mg Hydralazine HCl (Apresoline) 20 mg IVPUSH Q4H PRN PRN Reason: Hypertension Hydrocortisone Sodium Succinate (Solu-Cortef) 100 mg IVPUSH Q6H PENDING SALE TO [facility] Last Admin: 10/25/16 08:01 Dose: 100 mg Hydromorphone HCl (Dilaudid) 1 mg IVPUSH Q2H PRN PRN Reason: Pain Last Admin: 10/25/16 10:46 Dose: 1 mg Dextrose/Sodium Chloride (Dextrose 5%-1/2 Ns) 1,000 mls @ 125 mls/hr IV ASDIRECTED PENDING SALE TO [facility] Last Admin: 10/25/16 00:52 Dose: 125 mls/hr Promethazine HCl 12.5 mg/ (Sodium Chloride) 50.5 mls @ 100 mls/hr IV Q6H PRN PRN Reason: Nausea/Vomiting Metronidazole 500 mg/ Premix 100 mls @ 100 mls/hr IV Q8H PENDING SALE TO [facility] Last Admin: 10/25/16 06:17 Dose: 100 mls/hr Lorazepam (Ativan) 2 mg IVPUSH Q4H PRN PRN Reason: Seizures Lorazepam (Ativan) 1 mg IV Q6H PRN PRN Reason: Anxiety Last Admin: 10/25/16 04:09 Dose: 1 mg Lorazepam (Ativan) 1 mg PO BID PRN PRN Reason: Anxiety Magnesium Sulfate (Pharmacy To Dose - Magnesium Replacement) 1 dose .XX ASDIRECTED PENDING SALE TO [facility] Metoclopramide HCl (Reglan) 5 mg IVPUSH Q6H PENDING SALE TO [facility] Last Admin: 10/25/16 06:17 Dose: 5 mg Metoprolol Tartrate (Lopressor) 5 mg IVPUSH Q4H PRN PRN Reason: Tachycardia Multivitamins (Thera) 1 each PO DAILY PENDING SALE TO [facility] Last Admin: 10/25/16 10:28 Dose: 1 each Ondansetron HCl (Zofran) 4 mg IV Q6H PRN PRN Reason: Nausea/Vomiting Pantoprazole Sodium (Protonix Iv) 40 mg IV Q12HR PENDING SALE TO [facility] Last Admin: 10/25/16 10:28 Dose: 40 mg Budesonide [Entocort (Ec] 6 Mg) 0 each PO BEDTIME LALITHA Last Admin: 10/25/16 08:24 Dose: Not Given Potassium Chloride (Pharmacy To Dose - Potassium Replacement) 1 dose .XX ASDIRECTED LALITHA Sodium Chloride (Saline Flush) 10 ml FLUSH ASDIRECTED PRN PRN Reason: Keep Vein Open Last Admin: 10/24/16 13:49 Dose: 10 ml Temazepam (Restoril) 15 mg PO BEDTIME PRN PRN Reason: Sleep Last Admin: 10/24/16 22:34 Dose: 15 mg Discontinued Medications Cyanocobalamin (Vitamin B12) 1,000 mcg IM ONETIME ONE Stop: 10/24/16 18:04 Last Admin: 10/24/16 22:27 Dose: Not Given Cyanocobalamin (Vitamin B12) 1,000 mcg IM ONETIME ONE Stop: 10/24/16 22:31 Last Admin: 10/24/16 22:32 Dose: 1,000 mcg Diatrizoate Meglum/Diatrizoate Sod (Gastrografin 37%) 90 ml PO ONETIME ONE Stop: 10/24/16 12:58 Last Admin: 10/24/16 13:48 Dose: 90 ml Hydromorphone HCl (Dilaudid) 1 mg IVPUSH ONETIME ONE Stop: 10/24/16 11:52 Last Admin: 10/24/16 12:08 Dose: 1 mg Hydromorphone HCl (Dilaudid) 1 mg IVPUSH ONETIME ONE Stop: 10/24/16 12:26 Last Admin: 10/24/16 12:32 Dose: 1 mg Hydromorphone HCl (Dilaudid) 1 mg IVPUSH ONETIME ONE Stop: 10/24/16 13:33 Last Admin: 10/24/16 13:35 Dose: 1 mg Hydromorphone HCl (Dilaudid) 1 mg IVPUSH ONETIME ONE Stop: 10/24/16 16:30 Last Admin: 10/24/16 16:35 Dose: 1 mg Hydromorphone HCl (Dilaudid) 1 mg IVPUSH Q4H PRN PRN Reason: Pain (severe 7-10) Last Admin: 10/24/16 19:19 Dose: 1 mg Sodium Chloride (Normal Saline) 2,000 mls @ 999 mls/hr IV ONETIME ONE Stop: 10/24/16 13:51 Last Admin: 10/24/16 12:10 Dose: 999 mls/hr Sodium Chloride (Normal Saline) Confirm Administered Dose 1,000 mls @ as directed .ROUTE .STK-MED ONE Stop: 10/24/16 13:44 Last Admin: 10/24/16 13:43 Dose: 1,000 ml Iopamidol (Isovue-300 (61%)) 100 ml IVPUSH ONETIME ONE Stop: 10/24/16 12:58 Last Admin: 10/24/16 13:49 Dose: 90 ml Metoclopramide HCl (Reglan) 5 mg IVPUSH ONETIME ONE Stop: 10/24/16 16:29 Last Admin: 10/24/16 16:33 Dose: 5 mg Non-Formulary Medication (Multivitamin ) 2 vial IV DAILY LALITHA Ondansetron HCl (Zofran) 4 mg IVPUSH ONETIME ONE Stop: 10/24/16 11:53 Last Admin: 10/24/16 12:06 Dose: 4 mg Sodium Chloride (Saline Flush) 10 ml FLUSH ONETIME ONE Stop: 10/24/16 12:58 Last Admin: 10/24/16 14:34 Dose: 10 ml - Exam General: Alert, Oriented, Cooperative, No Acute Distress, Other HEENT: Pupils Equal, Pupils Reactive, EOMI, Mucous Membr. Moist/[place] Neck: Supple, Trachea Midline, No JVD Lungs: Clear to Auscultation, Normal Respiratory Effort Cardiovascular: Regular Rate, Regular Rhythm GI/Abdominal Exam: Normal Bowel Sounds, Soft, Non-Tender, No Organomegaly, No Distention, No Abnormal Bruit, No Mass, Other (Ilesotomy bag with gas and brownish colored watery stools). No: Guarding, Rigid, Rebound (Female) Exam: Deferred Back Exam: Normal Inspection, Decreased Range of Motion Extremities: Normal Inspection, Normal Range of Motion, Non-Tender, No Pedal Edema, Normal Capillary Refill, Other (PICC Line on right arm) Peripheral Pulses: 2+: Dorsalis Pedis (L), Dorsalis Pedis (R) Skin: Warm, Dry, Intact Wound/Incisions: Healing Well Neurological: No New Focal Deficit Psy/Mental Status: Alert, Normal Affect, Normal Mood - Problem List Review Problem List Initiated/Reviewed/Updated: Yes - My Orders Last 24 Hours: My Active Orders 10/24/16 17:51 LORazepam [Ativan] 2 mg IVPUSH Q4H PRN Metoprolol Tartrate [Lopressor] 5 mg IVPUSH Q4H PRN hydrALAZINE [Apresoline] 20 mg IVPUSH Q4H PRN 10/24/16 17:52 Height and Weight [RC] 04 Intake and Output [RC] 04,16 Oxygen Therapy [RC] PRN Up With Assistance [RC] ASDIRECTED Up ad Jacquelin [RC] ASDIRECTED VTE/DVT Education [RC] PER UNIT ROUTINE Vital Signs [RC] Q4HR Acetaminophen [Tylenol] 650 mg PO Q4H PRN Acetaminophen/HYDROcodone [Denair 325-5 MG] 1 tab PO Q4H PRN Albuterol/Ipratropium [DuoNeb 3.0-0.5 MG/3 ML] 3 ml NEB Q4H PRN LORazepam [Ativan] 1 mg IV Q6H PRN Ondansetron [Zofran] 4 mg IV Q6H PRN Promethazine [Phenergan] 12.5 mg Sodium Chloride 0.9% [Normal Saline] 50 ml IV Q6H Temazepam [Restoril] 15 mg PO BEDTIME PRN Sequential Compression Device [OM.PC] Per Unit Routine 10/24/16 17:53 Antiembolic Devices [RC] DAILY 10/24/16 17:54 RT Aerosol Therapy [RC] ASDIRECTED 10/24/16 17:55 Consult to Case Management [CONS] Routine Consult to Assembler Adjuster [CONS] Routine Consult to Tandem Mill Operator [CONS] Routine 10/24/16 18:00 Dextrose 5%-0.45% NaCl [Dextrose 5%-1/2 NS] 1,000 ml IV ASDIRECTED Magnesium Rep Pharmacy to Dose [Pharmacy to Dose - Magnesium Replacement] 1 dose .XX ASDIRECTED Metoclopramide [Reglan] 5 mg IVPUSH Q6H Potassium Rep Pharmacy to Dose [Pharmacy to Dose - Potassium Replacement] 1 dose .XX ASDIRECTED 10/24/16 18:05 Ambulate [RC] ASDIRECTED 10/24/16 18:30 Hydrocortisone Sod Succinate [Solu-CORTEF] 100 mg IVPUSH Q6H 10/24/16 21:00 Pantoprazole [ProTONIX IV] 40 mg IV Q12HR Patient's Own Medication [Ptom] 0 each PO BEDTIME 10/24/16 21:57 LORazepam [Ativan] 1 mg PO BID PRN 10/24/16 22:00 metroNIDAZOLE/Normal Saline [Flagyl 500 MG in NS 100 ML] 500 mg Premix Bag 1 bag IV Q8H 10/24/16 22:13 HYDROmorphone [Dilaudid] 1 mg IVPUSH Q2H PRN 10/24/16 22:18 Resuscitation Status Routine 10/24/16 Dinner Nothing per Oral Now Diet [DIET] 10/25/16 06:49 Communication Order [RC] DAILY 10/25/16 09:00 Cyanocobalamin (Vitamin B12) [Vitamin B12] 1,000 mcg IM DAILY Folic Acid 1 mg PO DAILY Multivitamins,Therapeutic [Thera] 1 each PO DAILY 10/25/16 18:04 Folic Acid 2 mg SUBCUT DAILY ONE 10/26/16 05:11 BASIC METABOLIC PANEL,BMP [CHEM] AM C-REACTIVE PROTEIN [CHEM] AM MAGNESIUM [CHEM] AM SEDIMENTATION RATE AUTO [HEME] AM 10/26/16 07:00 KUB [Abdomen 1V Flat] [CR] Routine 10/27/16 05:11 BASIC METABOLIC PANEL,BMP [CHEM] AM C-REACTIVE PROTEIN [CHEM] AM MAGNESIUM [CHEM] AM SEDIMENTATION RATE AUTO [HEME] AM 10/28/16 05:11 BASIC METABOLIC PANEL,BMP [CHEM] AM C-REACTIVE PROTEIN [CHEM] AM MAGNESIUM [CHEM] AM SEDIMENTATION RATE AUTO [HEME] AM - Plan Plan:: Assessment/Plan: Acute: Crohn's Disease, Improved - Acute on Chronic - She follows GI in specialist - Continue IV Hydrocortisone 100 mg IV Q6H and IV Flagyl 500 mg Q8 - IV Hydration and TPN - PRN Pain Medications Partial Small Bowel Obstruction, Appears to have resolved - 2/2 Above or Crohn's Colitis and likely Opioid Use/Abuse - She is passing gas - Removed NGT on her own - KUB this am shows dilated gas filled bowel within the left abdomen, (air- fluid level on initial KUB) - Continue IV fluids and scheduled prokinetic agent - Encourage to Ambulate QID Anemia - Acute on Chronic - 2/2 Chronic Disease from Crohn's Disease - Hgb baseline is 10-12 - Hgb is 9.6 on admission, now 8.6 - Continue Vit B12, Folic Acid and MVI Abdominal/Pelvis CT scan Findings - Sub-pleural nodular density within the right lung base-recommend non- contrast chest CT in 6 months - Mildly prominent mesenteric lymph nodes which are stable from prior CT study - Several low density areas within the gallbladder compatible with cholesterol gallstones. 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
--- NOTE | 2016-10-25 13:35 | CR ---
Chest: Portable view of the chest was obtained. Comparison: Prior chest x-ray is not available. Heart size and mediastinum are normal. Nasogastric tube is seen with tip lying proximal to the level of the aortic arch. Right-sided PICC line is seen with tip lying within the superior vena cava. Lungs are clear. Heart size and mediastinum are normal. Bony structures are grossly intact. Impression: 1. Nasogastric tube with tip lying slightly above the level of the aortic arch. 2. Satisfactory position of right-sided PICC line. 3. Nothing acute is otherwise seen on frontal chest x-ray. Diagnostic code #3
--- NOTE | 2016-10-25 14:35 | CR ---
Abdomen: Supine view of the abdomen was obtained. Dilated gas-filled bowel seen within the left abdomen. This is most likely small bowel. Calcifications within the pelvis are compatible with phleboliths. Bony structures are unremarkable. Impression: 1. Dilated gas-filled bowel within the left abdomen most likely small bowel. Diagnostic code #3
[2016-10-25] MEDS ORDERED: Folic Acid 50 MG/10 ML MDV SUBCUT ONE (18:04)
[2016-10-25] MEDS: TPN SCH (20:52)
[2016-10-25] MEDS: Temazepam 15 MG Cap PO PRN (23:33)
[2016-10-26] MEDS: Metoclopramide 10 MG/2 ML SDV IVPUSH SCH ×3 (05:05→17:59)
[2016-10-26] MEDS: HYDROmorphone 1 MG/ML Syringe IVPUSH PRN ×7 (05:07→20:12)
[2016-10-26] MEDS: metroNIDAZOLE/Normal Saline 500 MG in Premix Bag 1 BAG IV SCH ×2 (05:11→13:02)
[2016-10-26] MEDS: Hydrocortisone Sodium Succinate 100 MG/2 ML SDV IVPUSH SCH ×3 (06:21→18:00)
--- NOTE | 2016-10-26 06:40 | PCM.DCSUM1 ---
Discharge Summary - Hospital Course Free Text/Narrative:: This is 31 yo white female with past medical hx/o heart failure, history of sigmoid dilitation 4, Crohn's fistula, anxiety, depression and status post ileostomy who presents to the emergency department with complains of generalized abdominal pain associated with distention and nausea. Patient carries a severe form of Crohn's disease and is currently on entyvio for treatment. Patient has ileostomy bag and PICC line to her right arm for TPN. Patient just got back from [place] and is here to visit her and daughter. According to her, not taken her Dilaudid and felt this may be due to her increasing abdominal discomfort. Per ED notes, her states that patient was found excessively tired with low energy and would follow asleep randomly. Patient denies any systemic infection. No sick contact. Patient sees a GI specialist in [facility] for her Severe Crohn's disease. She follows a local specialist here in [facility] for routine maintenance. Patient is on the following medications for her Crohn's regimen: Entocort 6 mg by mouth at bedtime, Phenergan 12.5 mg by mouth every 6 PRN, Rewey 325/5 mg 1-2 tab by mouth every 4H PRN. Her initial workup in emergency department shows a CBC remarkable for hemoglobin of 9.6, hematocrit of 31.4, MCV of 66.8, MCH of 20.4, MCHC of 30.6, and platelet of 389. Her ESR is 42 and CRP is 7.1. Her chemistry is significant for Na of 132, Cl of 96, BUN of 25, Glucose of 114, AST of 54, ALT 60, Alk Phos of 187, Total Protein of 8.3 and Albumin of 3.1. Her test is negative. Her UA is negative. Abdominal x-ray report reads suspicious for mid small bowel obstruction. Abdominal CT scan report reads diffuse small bowel wall dilatation, compatible with mid to distal small bowel obstruction. Sub- pleural nodule density within the right lung base. Mildly prominent mesenteric lymph nodes stable from prior study. Several low density areas within the gallbladder which are felt compatible with cholesterol gallstone. She was subsequently admitted to the floor. She is a full code. Her primary care provider locally is Dr. Yao in [place] and she is also managed by a provider in [place], which is where she is from. While in our care the patient improved rapidly. It is believed she was having an acute Crohn's flareup on top of her chronic disease. Her CRP at discharge was 3.2. Her white count was 8.12, however she has been getting steroids. Potassium this morning was found to be low at 2.9. This was replenished prior to discharge. This should be followed up outpatient with her local primary care provider. She does report having blood draws weekly for her TPN requirement dosing. She has displayed some anemia while here. Hemoglobin baseline is normally 10-12 today was 7.8. On admission it was 9.6. She was transfused one unit prior to discharge as well. Iron prior to transfusion was 13.This also should be followed-up on as the patient reported chronic anemia and has required transfusions in the past. She is on folic acid as a home med. She may need vitamin B12 injections outpatient. She has been providing herself TPN as this is normal for her. My understanding is she sends weekly lab draws in and they return specifically dosed TPN to her. She has a PICC line in place. Abdominal\\pelvis CT scan was performed. Incidentally a subpleural nodular density within the local right lung base was discovered. Radiologist is commending a noncontrast chest CT in 6 months. There were also mildly prominent mesenteric lymph nodes noted. This is stable from a prior CT study. Also, there were several low density areas seen within the gallbladder that are compatible with cholesterol gallstones. Prior to discharge patient reported that she felt good and wanted to be discharged. She will be discharged on PO steroids and flagyl. She reported having a "usual" steroid step-down and they were prescribed as she described. She will need to follow up with her primary care provider as noted above. This case was discussed in detail with Dr. Moncada, Hospitalist. - Discharge Data Discharge Date: 10/26/16 (Admit date: 10/24/16) Discharge Disposition: Home, Self-Care 01 Condition: Good - Discharge Diagnosis/Problem(s) (1) Crohns disease of small intestine SNOMED Code(s): 02139938 ICD Code: K50.00 - CROHN'S DISEASE OF SMALL INTESTINE WITHOUT COMPLICATIONS Status: Chronic Priority: High Current Visit: Yes Qualifiers: Digestive disease complication type: other complication Qualified Code(s): K50.018 - Crohn's disease of small intestine with other complication (2) Small bowel obstruction SNOMED Code(s): 786167062 ICD Code: K56.69 - OTHER INTESTINAL OBSTRUCTION Status: Resolved Priority : High Current Visit: Yes (3) Hypokalemia SNOMED Code(s): 11173145 ICD Code: E87.6 - HYPOKALEMIA Status: Acute Priority: High Current Visit: Yes (4) Anemia SNOMED Code(s): 330311013 ICD Code: D64.9 - ANEMIA, UNSPECIFIED Status: Acute Priority: High Current Visit: Yes Qualifiers: Anemia type: unspecified type Qualified Code(s): D64.9 - Anemia, unspecified - Patient Summary/Data Consults: Consultations 10/24/16 17:55 Consult to Case Management [CONS] Routine Consult to Bingo Caller [CONS] Routine Consult to Personnel Supervisor [CONS] Routine - Patient Instructions Diet: Usual Diet as Tolerated Activity: As Tolerated Driving: Do Not Drive (today) Showering/Bathing: May Shower - Discharge Plan Prescriptions/Med Rec: Metronidazole [IMW: metroNIDAZOLE] 500 mg PO QID #20 tab predniSONE See Taper PO .TAPER #70 tablet Home Medications: Home Meds Promethazine [Phenergan] 12.5 mg PO Q6H PRN #20 tablet 01/08/16 [Rx] Folic Acid 1 mg IV DAILY 10/24/16 [History] HYDROmorphone [Dilaudid] 4 mg PO Q6HR PRN 10/24/16 [History] Multivitamin 2 vial IV DAILY 10/24/16 [History] ALPRAZolam [Alprazolam] 0.5 mg PO Q8HR PRN 10/25/16 [History] Metronidazole [IMW: metroNIDAZOLE] 500 mg PO QID #20 tab 10/26/16 [Rx] Patient's Own Medication [Ptom] 0 each .XX Q24H each 10/26/16 [Rx] Patient's Own Medication [Ptom] 0 each PO BEDTIME each 10/26/16 [Rx] predniSONE See Taper PO .TAPER #70 tablet 10/26/16 [Rx] Patient Handouts: Small Bowel Obstruction, [id number], Hypokalemia, Potassium Content of Foods Forms: ED Department Discharge Referrals: Alee Yao MD [Primary Care Provider] - - Discharge Summary/Plan Comment DC Time >30 min.: Yes (45 minutes ) - General Info Date of Service: 10/26/16 Admission Dx/Problem (Free Text: Acute on Chronic Crohn's Disease with Small Bowel Obstruction Subjective Update: Follow Up Functional Status: Reports: Pain Controlled, Tolerating Diet, Ambulating, Urinating. Denies: New Symptoms - Review of Systems General: Reports: Malaise (Reports she feels like her Hgb may be low ) HEENT: Reports: No Symptoms Pulmonary: Reports: No Symptoms Cardiovascular: Reports: No Symptoms Gastrointestinal: Reports: No Symptoms Genitourinary: Reports: No Symptoms Musculoskeletal: Reports: No Symptoms Skin: Reports: No Symptoms Neurological: Reports: No Symptoms Psychiatric: Reports: No Symptoms - Patient Data Vitals - Most Recent: Last Vital Signs Temp 96.8 F 10/26/16 02:53 Pulse 63 10/26/16 02:53 Resp 14 10/26/16 02:53 BP 119/74 10/26/16 02:53 Pulse Ox 95 10/26/16 02:53 Weight - Most Recent: 123 lb 4.8 oz I&O - Last 24 hours: Intake & Output 10/25/16 10/25/16 10/26/16 14:59 22:59 06:59 Intake Total 1600 1450 Output Total 1550 Balance 50 1450 Lab Results - Last 24 hrs: Laboratory Results - last 24 hr 10/25/16 10/25/16 10/25/16 Range/Units 06:15 06:15 06:15 WBC 3.15 L (3.98-10.04) K/mm3 RBC 4.25 (3.98-5.22) M/mm3 Hgb 8.6 L (11.2-15.7) gm/L Hct 28.9 L (34.1-44.9) % MCV 68.0 L (79.4-94.8) fl MCH 20.2 L (25.6-32.2) pg MCHC 29.8 L (32.2-35.5) g/dl RDW Std Deviation 46.9 H (36.4-46.3) fL Plt Count 329 (182-369) K/mm3 MPV 9.5 (9.4-12.3) fl Neut % (Auto) 75.6 H (34.0-71.1) % Lymph % (Auto) 20.3 (19.3-51.7) % [place] % (Auto) 3.5 L (4.7-12.5) % Eos % (Auto) 0 L (0.7-5.8) Baso % (Auto) 0.3 (0.1-1.2) % Neut # (Auto) 2.38 (1.56-6.13) K/mm3 Lymph # (Auto) 0.64 L (1.18-3.74) K/mm3 [place] # (Auto) 0.11 L (0.24-0.36) K/mm3 Eos # (Auto) 0.00 L (0.04-0.36) K/mm3 Baso # (Auto) 0.01 (0.01-0.08) K/mm3 Manual Slide Review Abnormal smear ESR 46 H (0-20) mm/hr Sodium 140 (136-145) mEq/L Potassium 4.0 (3.5-5.1) mEq/L Chloride 107 (98-107) mEq/L Carbon Dioxide 26 (21-32) mEq/L Anion Gap 11.0 (5-15) BUN 19 H (7-18) mg/dL Creatinine 0.6 (0.55-1.02) mg/dL Est Cr Clr Drug Dosing 117.79 mL/min Estimated GFR (MDRD) > 60 (>60) mL/min BUN/Creatinine Ratio 31.7 H (14-18) Glucose 241 H (74-106) mg/dL Calcium 8.8 (8.5-10.1) mg/dL Magnesium 2.0 (1.8-2.4) mg/dl C-Reactive Protein 6.0 H* (<1.0) mg/dL Med Orders - Current: Current Medications Acetaminophen (Tylenol) 650 mg PO Q4H PRN PRN Reason: Pain (Mild 1-3)/fever Hydrocodone Bitart/Acetaminophen (Rewey 325-5 Mg) 1 tab PO Q4H PRN PRN Reason: Pain (moderate 4-6) Last Admin: 10/24/16 21:57 Dose: 1 tab Albuterol/Ipratropium (Duoneb 3.0-0.5 Mg/3 Ml) 3 ml NEB Q4H PRN PRN Reason: Shortness Of Breath/wheezing Cyanocobalamin (Vitamin B12) 1,000 mcg IM DAILY [facility] Stop: 10/28/16 09:00 Last Admin: 10/25/16 10:28 Dose: 1,000 mcg Folic Acid (Folic Acid) 1 mg PO DAILY [facility] Last Admin: 10/25/16 10:28 Dose: 1 mg Hydralazine HCl (Apresoline) 20 mg IVPUSH Q4H PRN PRN Reason: Hypertension Hydrocortisone Sodium Succinate (Solu-Cortef) 100 mg IVPUSH Q6H [facility] Last Admin: 10/26/16 06:21 Dose: 100 mg Hydromorphone HCl (Dilaudid) 1 mg IVPUSH Q2H PRN PRN Reason: Pain Last Admin: 10/26/16 05:07 Dose: 1 mg Dextrose/Sodium Chloride (Dextrose 5%-1/2 Ns) 1,000 mls @ 125 mls/hr IV ASDIRECTED [facility] Last Admin: 10/25/16 23:45 Dose: 125 mls/hr Promethazine HCl 12.5 mg/ (Sodium Chloride) 50.5 mls @ 100 mls/hr IV Q6H PRN PRN Reason: Nausea/Vomiting Metronidazole 500 mg/ Premix 100 mls @ 100 mls/hr IV Q8H [facility] Last Admin: 10/26/16 05:11 Dose: 100 mls/hr Lorazepam (Ativan) 2 mg IVPUSH Q4H PRN PRN Reason: Seizures Lorazepam (Ativan) 1 mg IV Q6H PRN PRN Reason: Anxiety Last Admin: 10/25/16 23:24 Dose: 1 mg Lorazepam (Ativan) 1 mg PO BID PRN PRN Reason: Anxiety Last Admin: 10/26/16 05:22 Dose: 1 mg Magnesium Sulfate (Pharmacy To Dose - Magnesium Replacement) 1 dose .XX ASDIRECTED [facility] Metoclopramide HCl (Reglan) 5 mg IVPUSH Q6H [facility] Last Admin: 10/26/16 05:05 Dose: 5 mg Metoprolol Tartrate (Lopressor) 5 mg IVPUSH Q4H PRN PRN Reason: Tachycardia Multivitamins (Thera) 1 each PO DAILY [facility] Last Admin: 10/25/16 10:28 Dose: 1 each Ondansetron HCl (Zofran) 4 mg IV Q6H PRN PRN Reason: Nausea/Vomiting Pantoprazole Sodium (Protonix Iv) 40 mg IV Q12HR [facility] Last Admin: 10/25/16 20:46 Dose: 40 mg Budesonide [Entocort (Ec] 6 Mg) 0 each PO BEDTIME [facility] Last Admin: 10/25/16 21:07 Dose: Not Given Pt's Own Tpn 0 each .XX Q24H [facility] Last Admin: 10/25/16 20:52 Dose: Not Given Potassium Chloride (Pharmacy To Dose - Potassium Replacement) 1 dose .XX ASDIRECTED LALITH[facility] Sodium Chloride (Saline Flush) 10 ml FLUSH ASDIRECTED PRN PRN Reason: Keep Vein Open Last Admin: 10/24/16 13:49 Dose: 10 ml Temazepam (Restoril) 15 mg PO BEDTIME PRN PRN Reason: Sleep Last Admin: 10/25/16 23:33 Dose: 15 mg Discontinued Medications Cyanocobalamin (Vitamin B12) 1,000 mcg IM ONETIME ONE Stop: 10/24/16 18:04 Last Admin: 10/24/16 22:27 Dose: Not Given Cyanocobalamin (Vitamin B12) 1,000 mcg IM ONETIME ONE Stop: 10/24/16 22:31 Last Admin: 10/24/16 22:32 Dose: 1,000 mcg Diatrizoate Meglum/Diatrizoate Sod (Gastrografin 37%) 90 ml PO ONETIME ONE Stop: 10/24/16 12:58 Last Admin: 10/24/16 13:48 Dose: 90 ml Folic Acid (Folic Acid) 2 mg SUBCUT DAILY ONE Stop: 10/25/16 18:05 Hydromorphone HCl (Dilaudid) 1 mg IVPUSH ONETIME ONE Stop: 10/24/16 11:52 Last Admin: 10/24/16 12:08 Dose: 1 mg Hydromorphone HCl (Dilaudid) 1 mg IVPUSH ONETIME ONE Stop: 10/24/16 12:26 Last Admin: 10/24/16 12:32 Dose: 1 mg Hydromorphone HCl (Dilaudid) 1 mg IVPUSH ONETIME ONE Stop: 10/24/16 13:33 Last Admin: 10/24/16 13:35 Dose: 1 mg Hydromorphone HCl (Dilaudid) 1 mg IVPUSH ONETIME ONE Stop: 10/24/16 16:30 Last Admin: 10/24/16 16:35 Dose: 1 mg Hydromorphone HCl (Dilaudid) 1 mg IVPUSH Q4H PRN PRN Reason: Pain (severe 7-10) Last Admin: 10/24/16 19:19 Dose: 1 mg Sodium Chloride (Normal Saline) 2,000 mls @ 999 mls/hr IV ONETIME ONE Stop: 10/24/16 13:51 Last Admin: 10/24/16 12:10 Dose: 999 mls/hr Sodium Chloride (Normal Saline) Confirm Administered Dose 1,000 mls @ as directed .ROUTE .STK-MED ONE Stop: 10/24/16 13:44 Last Admin: 10/24/16 13:43 Dose: 1,000 ml Iopamidol (Isovue-300 (61%)) 100 ml IVPUSH ONETIME ONE Stop: 10/24/16 12:58 Last Admin: 10/24/16 13:49 Dose: 90 ml Metoclopramide HCl (Reglan) 5 mg IVPUSH ONETIME ONE Stop: 10/24/16 16:29 Last Admin: 10/24/16 16:33 Dose: 5 mg Non-Formulary Medication (Multivitamin ) 2 vial IV DAILY [facility] Ondansetron HCl (Zofran) 4 mg IVPUSH ONETIME ONE Stop: 10/24/16 11:53 Last Admin: 10/24/16 12:06 Dose: 4 mg Sodium Chloride (Saline Flush) 10 ml FLUSH ONETIME ONE Stop: 10/24/16 12:58 Last Admin: 10/24/16 14:34 Dose: 10 ml - Exam Quality Assessment: Reports: DVT Prophylaxis General: Reports: Alert, Oriented, Cooperative HEENT: Reports: Pupils Equal, Pupils Reactive, Mucous Membr. Moist/[place] Neck: Reports: Supple, Trachea Midline, No JVD Lungs: Reports: Clear to Auscultation, Normal Respiratory Effort Cardiovascular: Reports: Regular Rate, Regular Rhythm GI/Abdominal Exam: Normal Bowel Sounds, Soft, Non-Tender, Other (ostomy present ) (Female) Exam: Deferred Rectal (Female) Exam: Deferred Back Exam: Reports: Normal Inspection, Full Range of Motion Extremities: Normal Inspection, Normal Range of Motion, Non-Tender, No Pedal Edema, Normal Capillary Refill Skin: Reports: Warm, Dry, Intact Neurological: Reports: No New Focal Deficit, Normal Gait, Normal Speech, Normal Tone Psy/Mental Status: Reports: Alert, Normal Affect, Normal Mood *Q Meaningful Use (DIS) - VTE *Q VTE Criteria *Q: - Stroke *Q Stroke Criteria *Q: - AMI *Q AMI Criteria *Q:
[2016-10-26] MEDS: Folic Acid 1 MG Tab PO SCH (08:52)
[2016-10-26] MEDS: Multivitamins,Therapeutic Tab PO SCH (08:53)
[2016-10-26] MEDS: Cyanocobalamin (Vitamin B12) 1,000 MCG/ML SDV IM SCH (08:53)
[2016-10-26] MEDS: Pantoprazole 40 MG Vial IV SCH (08:53)
[2016-10-26] MEDS: Dextrose 5%-0.45% NaCl 1,000 ML IV SCH (10:02)
[2016-10-26] MEDS: Potassium Chloride 10 MEQ in Premix Bag 1 BAG IV SCH ×6 (10:02→16:28)
[2016-10-26] MEDS ORDERED: Sodium Chloride 0.9% 250 ML IV SCH (12:00)
[2016-10-26] MEDS: LORazepam 2 MG/ML MDV IV PRN (13:37)
[2016-10-26 15:52] VITALS: BP 124/86
[2016-10-26] MEDS: TPN SCH (20:06)
== END 2016-10-26 20:39 | disposition home or self-care (01) | DRG 386 ==
LOC: JD.ED 11:03 → JD.MS 17:25 → UNDOADMIN 17:25 → JD.MS 18:54 → UNDODISIN 10-26 20:39
PROVIDERS: ADMIT Internal Medicine; ATTEND Internal Medicine
PROC: 30233N1 Transfusion of Nonautologous Red Blood Cells into Peripheral Vein, Percutaneous Approach (ICD-10-PCS; principal; 2016-10-26)
DX: K56.60 Unspecified intestinal obstruction (principal); K50.018 Crohn's disease of small intestine with other complication; I50.9 Heart failure, unspecified; K50.912 Crohn's disease, unspecified, with intestinal obstruction; D64.9 Anemia, unspecified; E87.6 Hypokalemia; J98.4 Other disorders of lung; Z86.79 Personal history of other diseases of the circulatory system; F32.9 Major depressive disorder, single episode, unspecified; F41.9 Anxiety disorder, unspecified; Z93.2 Ileostomy status; Z93.8 Other artificial opening status; Z79.899 Other long term (current) drug therapy
CPT/HCPCS: 36415; 74020; 74177; 80053; 81001; 83690; 84703; 85025; 85652; 86140; 96361; 96374; 96375; 96376; 99285; J1170 ×4; J2405; J2765; J7040 ×2; J7050 ×3; Q9963; Q9967; 36430; 71010; 71010-26; 74000; 74000-26; 80048; 83540; 83735; 86850; 86900; 86901; 86922; A9270-GY; C9113; J1720; J2060; J3420; J3480; J7042; P9016